=== PATIENT | female | born 1990 | race Caucasian/White ===

== ENCOUNTER 2016-04-19 19:56 | Emergency (ER) | payer OTHER ==
--- NOTE | 2016-04-20 09:43 | DIAGNOSTIC IMAGING REPORT ---
PROCEDURE: US COMPLETE PELVIC W/TRANSVAG INDICATION: Midline pelvic pain x 1 day. TECHNIQUE: Transabdominal and endovaginal morales scale and color Doppler sonographic images of the female pelvis were obtained. COMPARISON: None. FINDINGS: TRANSABDOMINAL SCANS: Normal kidneys. No pelvic mass. TRANSVAGINAL SCANS: Anteflexed uterus measures 7.3 x 4.9 x 2.7 cm. Myometrium is unremarkable. Normal endometrium measures 1.8 mm. Left ovary measures 3.4 x 2.4 x 1.9 cm with adjacent trace free fluid. Right ovary measures 3.2 x 2.1 x 2.6 cm. Peripheral follicles bilaterally. Normal vascular flow to both ovaries. IMPRESSION: 1. Trace free fluid adjacent to the left ovary 2. Otherwise negative pelvic ultrasound
--- NOTE | 2016-04-21 02:29 | ED NURSING NOTES ---
Clinical Report - Nurses [facility] [address] [place] [address] 04/20/2016 1:00 Patient: KYREE MCKEON TRIAGE Chief Complaint: ABDOMINAL PAIN. ( value of 1 entered for measurements so chart could be locked). --01:49 aHny Andujar R.N. Weight: 0.4 kg. Height/Length: 1 inches. BMI: 640. --01:48 Hany Andujar R.N. Allergies No Known Drug Allergy. --01:50 Hany Andujar R.N. DISPOSITION / DISCHARGE ( all charting done on paper). --01:42 Hany Andujar R.N. Locked/Released at 04/20/2016 1:50 by Hany Andujar R.N.
--- NOTE | 2016-04-21 02:29 | ED MAR SUMMARY ---
..... Medication Administration Record [facility] [address] [place], [place] [id number] Patient: KYREE MCKEON Visit ID: [id number] 25y, F Weight: 0.4 kg Height/Length: 1 in BMI: 640 ALLERGIES: No Known Drug Allergy
--- NOTE | 2016-04-21 02:29 | ED MAR SUMMARY ---
..... Medication Administration Record [facility] [address] [place], [place] [id number] Patient: KYREE MCKEON Visit ID: [id number] 25y, F Weight: 0.4 kg Height/Length: 1 in BMI: 640 ALLERGIES: No Known Drug Allergy
--- NOTE | 2016-04-21 02:29 | ED DISCHARGE INSTRUCTIONS ---
Patient: KYREE MCKEON General Instructions [facility] VisitID: [id number] [place] [address] 25y, F Registration Date/Time: 04/19/2016 Acute pelvic pain. (post operative). INSTRUCTIONS Do not work tomorrow. Drink plenty of fluids. Do not smoke. Seek medical help to quit smoking. Warnings: Further evaluation is necessary. SEDATIVE MEDICATION: You were given sedative medication during your visit. Do not drive or operate dangerous machinery. CONTROLLED SUBSTANCE WARNINGS. GENERAL WARNINGS: Return or contact your physician immediately if your condition worsens or changes unexpectedly, if not improving as expected, or if other problems arise. Follow-up: Follow up with your doctor tomorrow. ADDITIONAL INFORMATION Pelvic Pain, Uncertain Cause Based on your visit today, the exact cause of your pelvic pain is not certain. But your condition does not appear to be serious at this time. However, the signs of a serious problem may take more time to appear. Therefore, it is important for you to watch for any new symptoms or worsening of your condition. Home Care: Rest until you are feeling better. Avoid sexual intercourse until your pain goes away. You may use acetaminophen (Tylenol) or ibuprofen (Motrin, Advil) to control pain, unless another medicine was prescribed. [NOTE: If you have chronic liver or kidney disease or ever had a stomach ulcer or GI bleeding, talk with your doctor before using these medicines.] Follow Up with your doctor as advised. If a culture test was taken, call in two days for the results. If the culture is positive, you will be given more advice at that time. Otherwise, follow-up with your doctor or this facility as instructed. Get Prompt Medical Attention if any of the following occur: Fever of 100.4F (38C) or higher, or as directed by your healthcare provider Vaginal discharge Worsening pain Weakness, dizziness or fainting Unexpected vaginal bleeding or passage of morales or white tissue from the vagina Pain that moves to the right lower abdomen How To Quit Smoking Smoking is one of the hardest habits to break. About half of all those who have ever smoked have been able to quit, and most of those (about 70%) who still smoke want to quit. Here are some of the best ways to stop smoking. Keep Trying: It takes most smokers about 8 tries before they are finally able to fully quit. So, the more often you try and fail, the better your chance of quitting the next time! So, don't give up! Go Cold [place]: Most ex-smokers quit cold turkey. Trying to cut back gradually doesn't seem to work as well, perhaps because it continues the smoking habit. Also, it is possible to fool yourself by inhaling more while smoking fewer cigarettes. This results in the same amount of nicotine in your body! Get Support: Support programs can make an important difference, especially for the heavy smoker. These groups offer lectures, methods to change your behavior and peer support. Call the free national Quitline for more information. 260-IWLC-GDN (648-185-1886). Low-cost or free programs are offered by many hospitals, local chapters of the [place] [employer] (573-800-6895) and the [place] [employer] (577-345-6408). Support at home is important too. Non-smokers can help by offering praise and encouragement. If the smoker fails to quit, encourage them to try again! Jpnp-Adj-Unatysc Medicines: For those who can't quit on their own, Nicotine Replacement Therapy (NRT) may make quitting much easier. Certain aids such as the nicotine patch, gum and lozenge are available without a prescription. However, it is best to use these under the guidance of your doctor. The skin patch provides a steady supply of nicotine to the body. Nicotine gum and lozenge gives temporary bursts of low levels of nicotine. Both methods take the edge off the craving for cigarettes. WARNING: If you feel symptoms of nicotine overdose, such as nausea, vomiting, dizziness, weakness, or fast heartbeat, stop using these and see your doctor. Prescription Medicines: After evaluating your smoking patterns and prior attempts at quitting, your doctor may offer a prescription medicine such as bupropion (Zyban, Wellbutrin), varenicline (Chantix, Champix), a niocotine inhaler or nasal spray. Each has its unique advantage and side effects which your doctor can review with you. Health Benefits Of Quitting: The benefits of quitting start right away and keep improving the longer you go without smokin minutes: blood pressure and pulse return to normal 8 hours: oxygen levels return to normal 2 days: ability to smell and taste begins to improve as damaged nerves start to regrow 2-3 weeks: circulation and lung function improves 1-9 months: decreased cough, congestion and shortness of breath; less tired 1 year: risk of heart attack decreases by half 5 years: risk of lung cancer decreases by half; risk of stroke becomes the same as a non-smoker For information about how to quit smoking, visit the following links: National Cancer [place] , Clearing the Air, Quit Smoking Today - an online booklet. http://www.smokefree.gov/pubs/clearing_the_air.pdf Smokefree.gov http://smokefree.gov/ QuitNet http://www.quitnet.com/ You have been given the following additional information: Pelvic Pain, Unknown Cause Smoking Cessation Do not work tomorrow. (Electronically signed by Roni Ennis DO 04/20/2016 2:20)
--- NOTE | 2016-04-21 02:29 | ED DISCHARGE INSTRUCTIONS ---
Patient: KYREE MCKEON General Instructions [facility] VisitID: [id number] [place] [address] 25y, F Registration Date/Time: 04/19/2016 Acute pelvic pain. (post operative). INSTRUCTIONS Do not work tomorrow. Drink plenty of fluids. Do not smoke. Seek medical help to quit smoking. Warnings: Further evaluation is necessary. SEDATIVE MEDICATION: You were given sedative medication during your visit. Do not drive or operate dangerous machinery. CONTROLLED SUBSTANCE WARNINGS. GENERAL WARNINGS: Return or contact your physician immediately if your condition worsens or changes unexpectedly, if not improving as expected, or if other problems arise. Follow-up: Follow up with your doctor tomorrow. ADDITIONAL INFORMATION Pelvic Pain, Uncertain Cause Based on your visit today, the exact cause of your pelvic pain is not certain. But your condition does not appear to be serious at this time. However, the signs of a serious problem may take more time to appear. Therefore, it is important for you to watch for any new symptoms or worsening of your condition. Home Care: Rest until you are feeling better. Avoid sexual intercourse until your pain goes away. You may use acetaminophen (Tylenol) or ibuprofen (Motrin, Advil) to control pain, unless another medicine was prescribed. [NOTE: If you have chronic liver or kidney disease or ever had a stomach ulcer or GI bleeding, talk with your doctor before using these medicines.] Follow Up with your doctor as advised. If a culture test was taken, call in two days for the results. If the culture is positive, you will be given more advice at that time. Otherwise, follow-up with your doctor or this facility as instructed. Get Prompt Medical Attention if any of the following occur: Fever of 100.4F (38C) or higher, or as directed by your healthcare provider Vaginal discharge Worsening pain Weakness, dizziness or fainting Unexpected vaginal bleeding or passage of morales or white tissue from the vagina Pain that moves to the right lower abdomen How To Quit Smoking Smoking is one of the hardest habits to break. About half of all those who have ever smoked have been able to quit, and most of those (about 70%) who still smoke want to quit. Here are some of the best ways to stop smoking. Keep Trying: It takes most smokers about 8 tries before they are finally able to fully quit. So, the more often you try and fail, the better your chance of quitting the next time! So, don't give up! Go Cold [place]: Most ex-smokers quit cold turkey. Trying to cut back gradually doesn't seem to work as well, perhaps because it continues the smoking habit. Also, it is possible to fool yourself by inhaling more while smoking fewer cigarettes. This results in the same amount of nicotine in your body! Get Support: Support programs can make an important difference, especially for the heavy smoker. These groups offer lectures, methods to change your behavior and peer support. Call the free national Quitline for more information. 736-NOIX-SVM (778-743-8553). Low-cost or free programs are offered by many hospitals, local chapters of the [place] [employer] (403-045-8768) and the [place] [employer] (096-919-4867). Support at home is important too. Non-smokers can help by offering praise and encouragement. If the smoker fails to quit, encourage them to try again! Xicd-Hzj-Bktlpfo Medicines: For those who can't quit on their own, Nicotine Replacement Therapy (NRT) may make quitting much easier. Certain aids such as the nicotine patch, gum and lozenge are available without a prescription. However, it is best to use these under the guidance of your doctor. The skin patch provides a steady supply of nicotine to the body. Nicotine gum and lozenge gives temporary bursts of low levels of nicotine. Both methods take the edge off the craving for cigarettes. WARNING: If you feel symptoms of nicotine overdose, such as nausea, vomiting, dizziness, weakness, or fast heartbeat, stop using these and see your doctor. Prescription Medicines: After evaluating your smoking patterns and prior attempts at quitting, your doctor may offer a prescription medicine such as bupropion (Zyban, Wellbutrin), varenicline (Chantix, Champix), a niocotine inhaler or nasal spray. Each has its unique advantage and side effects which your doctor can review with you. Health Benefits Of Quitting: The benefits of quitting start right away and keep improving the longer you go without smokin minutes: blood pressure and pulse return to normal 8 hours: oxygen levels return to normal 2 days: ability to smell and taste begins to improve as damaged nerves start to regrow 2-3 weeks: circulation and lung function improves 1-9 months: decreased cough, congestion and shortness of breath; less tired 1 year: risk of heart attack decreases by half 5 years: risk of lung cancer decreases by half; risk of stroke becomes the same as a non-smoker For information about how to quit smoking, visit the following links: National Cancer [place] , Clearing the Air, Quit Smoking Today - an online booklet. http://www.smokefree.gov/pubs/clearing_the_air.pdf Smokefree.gov http://smokefree.gov/ QuitNet http://www.quitnet.com/ You have been given the following additional information: Pelvic Pain, Unknown Cause Smoking Cessation Do not work tomorrow. (Electronically signed by Roni Ennis DO 04/20/2016 2:20)
--- NOTE | 2016-04-21 02:29 | ED MED RECONCILIATION SUMMARY ---
Patient: KYREE MCKEON Medication Reconciliation Report [facility] VisitID: [id number] [address] [place] [address] 25y, F Registration Date/Time: 04/19/2016 Weight: 0.4 kg Height/Length: 1 in. BMI: 640.0 ALLERGIES: No Known Drug Allergy The patient's Home Medications are listed below: THE FOLLOWING MEDICATIONS NEED TO BE RECONCILED: HydrOXYzine HCl Oral Lexapro Oral Methadone HCl Oral The source(s) of the original Home Medication information: Not obtained. The following Medications were given to the patient in the Emergency Department: None. The following Medications were prescribed to the patient: None.
--- NOTE | 2016-04-21 02:29 | ED CLINICAL REPORT ---
Clinical Report - Physicians/Mid Levels [facility] [address] [place] [address] 04/20/2016 1:00 [id number] Time Seen: 21:05. Arrived- By private vehicle. Historian- patient. HISTORY OF PRESENT ILLNESS Chief Complaint: ABDOMINAL PAIN. It is described as "pain". No radiation. It is described as located in the lower abdomen. At its maximum, severity described as severe. When seen in the E.D., severity described as severe. Modifying factors- worsened by movement. Relieved by rest. Not relieved by anything. This started yesterday and is still present. It was gradual in onset and has been waxing/waning. The patient has had nausea. No vomiting or diarrhea. Similar symptoms previously: Recent medical care: The patient was seen recently and hospitalized. ( Pt is 1 week post op from abdominal laparoscopy for endometriosis and Pelvic inflammation /PID). REVIEW OF SYSTEMS No constipation, black stools, hematemesis, difficulty with urination or pain with urination. No urinary frequency, bloody stools, fever, headache or sore throat. No chest pain, difficulty breathing, cough or skin rash. Denies current . All systems otherwise negative, except as recorded above. PAST HISTORY See nurses notes. Anxiety Chicken pox Chronic low back pain Chronic pelvic pain Depression Hypercholesterolemeia Irritable bowel syndrome Pulmonary nodule. Surgeries: Colonoscopy. Endoscopy. Laparoscopy (last done at [facility]) 7 days ago - Dr Chua). (?Eye procedure). Medications: Lexapro Oral. HydrOXYzine HCl Oral. Methadone HCl Oral. Allergies: No Known Drug Allergy. SOCIAL HISTORY Smoker- current status unknown. Occasional alcohol use. No drug use. FAMILY HISTORY Negative. ADDITIONAL NOTES The nursing notes have been reviewed. PHYSICAL EXAM Vital Signs: Blood pressure: BP 95 / 41. Heart rate: 88. Respiratory rate 18. Temperature: 98.1. Oxygen saturation: 99 % room air. Appearance: Alert. Oriented X3. Patient in moderate distress. Eyes: Eyes normal inspection. No scleral icterus or pale conjunctivae. ENT: Nose normal. Pharynx normal. No pharyngeal erythema or tonsillar exudate. The mucous membranes are not dry. Neck: Normal inspection. Neck supple. CVS: Normal heart rate and rhythm. Heart sounds normal. Pulses normal. Respiratory: No respiratory distress. Breath sounds normal. Abdomen: Soft. Moderate tenderness in the lower abdomen. No rebound tenderness, distention, mass present or guarding. Back: Normal inspection. : (deferred at pt request). Skin: Skin warm and dry. Normal skin color. No rash. Normal skin turgor. Extremities: Extremities exhibit normal ROM. No lower extremity edema. No calf tenderness. No lower extremity edema. Neuro: Oriented X 3. No motor deficit. LABS, X-RAYS, AND EKG Pelvic Sonogram: Normal study. Free fluid is present in the pelvis (trace). Study type: bedside. The study was discussed with the radiologist (via tech). Urinalysis: WBCs present (0 - 1). RBCs present (0 - 1). Bacteria present (trace). Urine dipstick, clean catch sample: Sp Gr 1.030; pH 6; leukocytes negative; nitrite negative; protein negative; glucose normal; ketones negative; bilirubin negative; blood negative. HCG: Urine HCG negative Pulse Oximetry: 04/20/2016 02:17 O2 saturation: 99%. (FIO2 - room air). Interpretation: normal. PROGRESS AND PROCEDURES Course of Care: Normal Saline 1 liter IVPB given. Zofran 4 mg IVP given. Dilaudid 0.5 mg + 0.5mg IVP given. Patient is stable. Physical exam findings are improved. Symptoms much better. Pt with normal labs and US now. Benign, nonsurgical abdominal exam. Assured that pt will have next day f/u at [facility]. Discussed case with on-call health care provider, (Sulema call returned 22:30). Reviewed test results. Agreed upon treatment plan. Refers case to other health care provider. Discussed case with on-call health care provider, ([facility] 22:34 call returned 22:37 - recommends pelvic US call returned at 00:24 with normal US results and plan discussed - he will notifiy the [facility] IN[facility]CTION PREVENTION SPECIALIST and pt will have next day f/u). Reviewed test results. Agreed upon treatment plan. Patient/family counseled. Old medical records reviewed. (from [facility] ([facility] Disposition: Discharged. Condition: stable and improved. CLINICAL IMPRESSION Acute pelvic pain. (post operative). INSTRUCTIONS Do not work tomorrow. Drink plenty of fluids. Do not smoke. Seek medical help to quit smoking. Warnings: Further evaluation is necessary. SEDATIVE MEDICATION: You were given sedative medication during your visit. Do not drive or operate dangerous machinery. CONTROLLED SUBSTANCE WARNINGS. GENERAL WARNINGS: Return or contact your physician immediately if your condition worsens or changes unexpectedly, if not improving as expected, or if other problems arise. Follow-up: Follow up with your doctor tomorrow. (Electronically signed by Roni Ennis DO 04/20/2016 2:20)
--- NOTE | 2016-04-21 02:29 | ED NURSING NOTES ---
Clinical Report - Nurses [facility] [address] [address] 04/20/2016 1:00 Patient: KYREE MCKEON TRIAGE Chief Complaint: ABDOMINAL PAIN. ( value of 1 entered for measurements so chart could be locked). --01:49 Hany Andujar R.N. Weight: 0.4 kg. Height/Length: 1 inches. BMI: 640. --01:48 Hany Andujar R.N. Allergies No Known Drug Allergy. --01:50 Hany Andujar R.N. DISPOSITION / DISCHARGE ( all charting done on paper). --01:42 Hany Andujar R.N. Locked/Released at 04/20/2016 1:50 by Hany Andujar R.N.
--- NOTE | 2016-04-21 02:29 | ED MED RECONCILIATION SUMMARY ---
Patient: KYREE MCKEON Medication Reconciliation Report [facility] VisitID: [id number] [address] [place] [address] 25y, F Registration Date/Time: 04/19/2016 Weight: 0.4 kg Height/Length: 1 in. BMI: 640.0 ALLERGIES: No Known Drug Allergy The patient's Home Medications are listed below: THE FOLLOWING MEDICATIONS NEED TO BE RECONCILED: HydrOXYzine HCl Oral Lexapro Oral Methadone HCl Oral The source(s) of the original Home Medication information: Not obtained. The following Medications were given to the patient in the Emergency Department: None. The following Medications were prescribed to the patient: None.
--- NOTE | 2016-04-21 02:29 | ED CLINICAL REPORT ---
Clinical Report - Physicians/Mid Levels [facility] [address] [place] [address] 04/20/2016 1:00 [id number] Time Seen: 21:05. Arrived- By private vehicle. Historian- patient. HISTORY OF PRESENT ILLNESS Chief Complaint: ABDOMINAL PAIN. It is described as "pain". No radiation. It is described as located in the lower abdomen. At its maximum, severity described as severe. When seen in the E.D., severity described as severe. Modifying factors- worsened by movement. Relieved by rest. Not relieved by anything. This started yesterday and is still present. It was gradual in onset and has been waxing/waning. The patient has had nausea. No vomiting or diarrhea. Similar symptoms previously: Recent medical care: The patient was seen recently and hospitalized. ( Pt is 1 week post op from abdominal laparoscopy for endometriosis and Pelvic inflammation /PID). REVIEW OF SYSTEMS No constipation, black stools, hematemesis, difficulty with urination or pain with urination. No urinary frequency, bloody stools, fever, headache or sore throat. No chest pain, difficulty breathing, cough or skin rash. Denies current . All systems otherwise negative, except as recorded above. PAST HISTORY See nurses notes. Anxiety Chicken pox Chronic low back pain Chronic pelvic pain Depression Hypercholesterolemeia Irritable bowel syndrome Pulmonary nodule. Surgeries: Colonoscopy. Endoscopy. Laparoscopy (last done at [facility]) 7 days ago - Dr Chua). (?Eye procedure). Medications: Lexapro Oral. HydrOXYzine HCl Oral. Methadone HCl Oral. Allergies: No Known Drug Allergy. SOCIAL HISTORY Smoker- current status unknown. Occasional alcohol use. No drug use. FAMILY HISTORY Negative. ADDITIONAL NOTES The nursing notes have been reviewed. PHYSICAL EXAM Vital Signs: Blood pressure: BP 95 / 41. Heart rate: 88. Respiratory rate 18. Temperature: 98.1. Oxygen saturation: 99 % room air. Appearance: Alert. Oriented X3. Patient in moderate distress. Eyes: Eyes normal inspection. No scleral icterus or pale conjunctivae. ENT: Nose normal. Pharynx normal. No pharyngeal erythema or tonsillar exudate. The mucous membranes are not dry. Neck: Normal inspection. Neck supple. CVS: Normal heart rate and rhythm. Heart sounds normal. Pulses normal. Respiratory: No respiratory distress. Breath sounds normal. Abdomen: Soft. Moderate tenderness in the lower abdomen. No rebound tenderness, distention, mass present or guarding. Back: Normal inspection. : (deferred at pt request). Skin: Skin warm and dry. Normal skin color. No rash. Normal skin turgor. Extremities: Extremities exhibit normal ROM. No lower extremity edema. No calf tenderness. No lower extremity edema. Neuro: Oriented X 3. No motor deficit. LABS, X-RAYS, AND EKG Pelvic Sonogram: Normal study. Free fluid is present in the pelvis (trace). Study type: bedside. The study was discussed with the radiologist (via tech). Urinalysis: WBCs present (0 - 1). RBCs present (0 - 1). Bacteria present (trace). Urine dipstick, clean catch sample: Sp Gr 1.030; pH 6; leukocytes negative; nitrite negative; protein negative; glucose normal; ketones negative; bilirubin negative; blood negative. HCG: Urine HCG negative Pulse Oximetry: 04/20/2016 02:17 O2 saturation: 99%. (FIO2 - room air). Interpretation: normal. PROGRESS AND PROCEDURES Course of Care: Normal Saline 1 liter IVPB given. Zofran 4 mg IVP given. Dilaudid 0.5 mg + 0.5mg IVP given. Patient is stable. Physical exam findings are improved. Symptoms much better. Pt with normal labs and US now. Benign, nonsurgical abdominal exam. Assured that pt will have next day f/u at [facility]. Discussed case with on-call health care provider, ([facility] call returned 22:30). Reviewed test results. Agreed upon treatment plan. Refers case to other health care provider. Discussed case with on-call health care provider, ([facility] 22:34 call returned 22:37 - recommends pelvic US call returned at 00:24 with normal US results and plan discussed - he will notifiy the [facility] [employer] and pt will have next day f/u). Reviewed test results. Agreed upon treatment plan. Patient/family counseled. Old medical records reviewed. (from [facility] Disposition: Discharged. Condition: stable and improved. CLINICAL IMPRESSION Acute pelvic pain. (post operative). INSTRUCTIONS Do not work tomorrow. Drink plenty of fluids. Do not smoke. Seek medical help to quit smoking. Warnings: Further evaluation is necessary. SEDATIVE MEDICATION: You were given sedative medication during your visit. Do not drive or operate dangerous machinery. CONTROLLED SUBSTANCE WARNINGS. GENERAL WARNINGS: Return or contact your physician immediately if your condition worsens or changes unexpectedly, if not improving as expected, or if other problems arise. Follow-up: Follow up with your doctor tomorrow. (Electronically signed by Roni Ennis DO 04/20/2016 2:20)
== END 2016-04-20 00:34 | disposition home or self-care (01) ==
LOC: ED SRH 19:56
DX: R10.2 Pelvic and perineal pain (principal)
CPT/HCPCS: 90004; 90100; 92235; 92530; 93070; 95059